=== PATIENT | female | born 1965 | race Caucasian/White ===

== ENCOUNTER 2022-07-26 11:18 | Outpatient (CLI) | payer BC, SELFPAY ==
--- NOTE | ~2022-07-26 | XR_ITS ---
AP view of the pelvis and AP and lateral views of the bilateral hips Clinical history: Pain Findings: No acute fracture or dislocation is seen. Osseous alignment is anatomic. Bilateral hip and SI joint spaces are preserved. Soft tissues are unremarkable. Impression: No significant abnormality is seen. Reviewed, dictated and finalized at location . Impression: No significant abnormality is seen.
== END 2022-07-26 11:19 | disposition home or self-care (01) ==
PROVIDERS: PCP Nurse Practitioner Family; Visit Provider Nurse Practitioner Family
DX: M89.9 Disorder of bone, unspecified (principal)
CPT/HCPCS: 73521

== ENCOUNTER 2023-05-29 10:32 | Outpatient (CLI) | payer BC, SELFPAY ==
--- NOTE | ~2023-05-29 | XR_ITS ---
EXAMINATION: XR chest 2V Exam Date/Time: 05/29/2023 10:38 CDT HISTORY: SOB X few weeks, bilat posterior shoulder pain Comparison: None. RESULT: Lines, tubes, and devices: Right shoulder soft tissue anchors. Lungs and pleura: Clear. Cardiomediastinal silhouette: Unremarkable. Other: No acute osseous or upper abdominal finding. IMPRESSION: No acute cardiopulmonary process. Dedicated radiographs of the shoulders or scapulae also may be help ful depending on the clinical presentation. Reviewed, dictated and finalized at location K. IMPRESSION: No acute cardiopulmonary process. Dedicated radiographs of the shoulders or sca pulae also may be helpful depending on the clinical presentation.
== END 2023-05-29 10:33 | disposition home or self-care (01) ==
LOC: CHSIMG 10:35
PROVIDERS: PCP Family Medicine; Visit Provider Family Medicine
DX: R06.02 Shortness of breath (principal); M25.512 Pain in left shoulder; M25.511 Pain in right shoulder
CPT/HCPCS: 71046